=== PATIENT | male | born 1960 | race Caucasian/White ===

== ENCOUNTER 2018-09-19 20:32 | Emergency (ER) | payer OTHER ==
[2018-09-19 20:46] VITALS: BP 153/95; PULSE 71; TEMP 97.5; BMI 31.2
--- NOTE | 2018-09-19 20:49 | PDOC ---
History of Present Illness - General History Source: Patient Exam Limitations: No Limitations - History of Present Illness Initial Comments: A portion of this note was documented by scribe services under my direction. I have reviewed the details of the note, within reason, and agree with the documentation with the following case summary and management plan written by me. Patient treated in the ED. Nursing notes are reviewed and incorporated into the medical decision-making. Vital signs reviewed. 09/19/18 20:49 Procedure note Jagged avulsion and associated superficial laceration or cleaned and closed with Dermabond patient tolerated well Patient discharged with Dermabond instructions <Kelsy Finch I - Last Filed: 09/19/18 20:43> - History of Present Illness Initial Comments: 09/19/18 20:54 The patient is a 58 year old male, with no significant PMH, currently on aspirin who presents to the emergency department with a right index laceration. Patient states he was cutting meat with a sharp knife when he accidently injured his right index finger. Patients laceration is not actively bleeding here in the ER. Unknown when he had his last tetanus shot. The patient denies chest pain, shortness of breath, headache and dizziness. Denies fever, chills, nausea, vomit, diarrhea and constipation. Denies dysuria, frequency, urgency and hematuria. Allergies: iodine Past surgical history: None reported. Social history: No reported alcohol, drug or cigarette use. PCP: Dr. Smith Adult ROS General: No fevers or chills, no weakness, no weight loss HEENT: No change in vision. No sore throat,. No ear pain CardioVascular: No chest pain or shortness of breath Respiratory:No cough, or wheezing. Gastrointestinal: no nausea, vomiting, diarrhea or constipation, No rectal bleeding Genitourinary: No dysuria, hematuria, or frequency Musculoskeletal: No joint or muscle pain or swelling Neurologic: No headache, vertigo, dizziness or loss of consciousness Psychiatric: nor depression Skin: No rashes or easy bruising. (+) Right index finger laceration. Endocrine: no increased thirst or abnormal weight change Allergic: no skin or latex allergy All other systems reviewed and normal Basic PE GENERAL: The patient is awake, alert, and fully oriented, in no acute distress. HEAD: Normal with no signs of trauma. EYES: Pupils equal, round and reactive to light, extraocular movements intact, sclera anicteric, conjunctiva clear. EXTREMITIES: Normal range of motion, no edema. NEUROLOGICAL: Normal speech, normal gait. PSYCH: Normal mood, normal affect. SKIN: Warm, Dry, normal turgor, no rashes noted. (+) Medial aspect of the right index finger has a jagged avulsion with small associated laceration to the proximal phalanx area. (+) Minimal amount of venous ooze. Neurovascularly intact. <Frida Riggins - Last Filed: 09/19/18 20:55> - General Chief Complaint: Laceration Stated Complaint: RT 2ND FINGER LACERATION Time Seen by Provider: 09/19/18 20:35 Past History - Past Medical History Anemia: No Asthma: No Cancer: No Cardiac Disorders: No CVA: No COPD: No CHF: No Dementia: No Diabetes: No GI Disorders: No Disorders: No HTN: Yes Hypercholesterolemia: Yes Liver Disease: No Seizures: No Thyroid Disease: No - Surgical History Abdominal Surgery: Yes (UMBILICAL HERNIA REPAIR 1999) Appendectomy: No Cardiac Surgery: (angiogram 06/2011 family hx) Cholecystectomy: No Lung Surgery: No Neurologic Surgery: No Orthopedic Surgery: Yes (LEFT KNEE ARTHROSCOPY 10/2011) - Suicide/Smoking/Psychosocial Hx Smoking History: Never smoked Have you smoked in the past 12 months: No Information on smoking cessation initiated: No Hx Alcohol Use: (social) Drug/Substance Use Hx: Yes Substance Use Type: Alcohol Hx Substance Use Treatment: No <Kelsy Finch I - Last Filed: 09/19/18 20:43> <Frida Riggins - Last Filed: 09/19/18 20:55> - Past Medical History Allergies/Adverse Reactions: Allergies Allergy/AdvReac Type Severity Reaction Status Date / Time Iodinated Contrast- Oral and Allergy Mild Rash Verified 09/19/18 20:33 IV Dye dye for angiogram Allergy Rash Uncoded 09/19/18 20:33 Home Medications: Ambulatory Orders Metoprolol Succinate [Toprol XL -] 1 tab PO DAILY 10/09/11 Simvastatin [Zocor] 2 tab PO DAILY 10/09/11 Aspirin [Aspirin EC] 81 mg PO DAILY 09/19/18 *Physical Exam - Vital Signs Last Vital Signs Temp Pulse Resp BP Pulse Ox 97.5 F L 71 18 153/95 97 09/19/18 20:32 09/19/18 20:32 09/19/18 20:32 09/19/18 20:32 09/19/18 20:32 <Kelsy Finch I - Last Filed: 09/19/18 20:43> - Vital Signs Last Vital Signs Temp Pulse Resp BP Pulse Ox 97.5 F L 71 18 153/95 97 09/19/18 20:32 09/19/18 20:32 09/19/18 20:32 09/19/18 20:32 09/19/18 20:32 <Frida Riggins - Last Filed: 09/19/18 20:55> Moderate Sedation - Procedure Monitoring Vital Signs: Procedure Monitoring Vital Signs Temperature 97.5 F L 09/19/18 20:32 Pulse Rate 71 09/19/18 20:32 Respiratory Rate 18 09/19/18 20:32 Blood Pressure 153/95 09/19/18 20:32 O2 Sat by Pulse Oximetry (%) 97 09/19/18 20:32 <Kelsy Finch I - Last Filed: 09/19/18 20:43> - Procedure Monitoring Vital Signs: Procedure Monitoring Vital Signs Temperature 97.5 F L 09/19/18 20:32 Pulse Rate 71 09/19/18 20:32 Respiratory Rate 18 09/19/18 20:32 Blood Pressure 153/95 09/19/18 20:32 O2 Sat by Pulse Oximetry (%) 97 09/19/18 20:32 <Frida Riggins - Last Filed: 09/19/18 20:55> *DC/Admit/Observation/Transfer - Discharge Dispostion Decision to Admit order: No <Kelsy Finch I - Last Filed: 09/19/18 20:43> - Attestations Scribe Attestion: 09/19/18 20:54 Documentation prepared by Frida Riggins, acting as medical billing associate for Kelsy Finch MD. <Frida Riggins - Last Filed: 09/19/18 20:55> Diagnosis at time of Disposition: Finger laceration Qualifiers: Encounter type: initial encounter Finger: index finger Damage to nail status: without damage Foreign body presence: without foreign body Laterality: right Qualified Code(s): S61.210A - Laceration without foreign body of right index finger without damage to nail, initial encounter - Discharge Dispostion Disposition: HOME Condition at time of disposition: Stable - Referrals Referrals: Arielle Borges MD [Primary Care Provider] - - Patient Instructions Printed Discharge Instructions: DI for Laceration Repair With Dermabond Additional Instructions: Read over and follow the Dermabond instructions. The johnson points are to make sure you keep it dry for 72 hours and do not apply any petroleum based product of the glue as it will cause it, for early and this includes antibiotic ointments motions are creams. Return to the emergency department immediately with ANY new, persistent or worsening symptoms. Continue any medications as previously prescribed by your physician. You should follow up with your primary doctor as soon as possible regarding today's emergency department visit. . Please make sure your doctor reviews the results of your emergency evaluation. Thank you for coming to the Emergency Department today for your care. It was a pleasure to see you today. Please note that your evaluation is INCOMPLETE until you follow-up with your doctor. - Post Discharge Activity
[2018-09-19] MEDS ORDERED: DIPHTH,PERTUSS(ACELL),TET 0.5 ML DISP.SYRIN IM ONE ×2 (20:52)
== END 2018-09-19 21:00 | disposition home or self-care (01) ==
LOC: FER 20:32
PROC: 3E0234Z Introduction of Serum, Toxoid and Vaccine into Muscle, Percutaneous Approach (ICD-10-PCS; principal; 2018-09-19)
PROC: 0HQFXZZ Repair Right Hand Skin, External Approach (ICD-10-PCS; 2018-09-19)
DX: S61.210A Laceration without foreign body of right index finger without damage to nail, initial encounter (principal); W26.0XXA Contact with knife, initial encounter; Y93.G1 Activity, food preparation and clean up; Y92.89 Other specified places as the place of occurrence of the external cause; I10 Essential (primary) hypertension; E78.00 Pure hypercholesterolemia, unspecified
CPT/HCPCS: 12001; 90471; 90715; 99283-25

== ENCOUNTER 2022-04-10 07:05 | Day surgery (SDC) | payer OTHER ==
[2022-04-08 09:14] VITALS: BMI 31.8
[2022-04-10] MEDS ORDERED: LIDOCAINE HCL/PF 2% SDV 5ML VIAL ONE (07:19)
[2022-04-10] MEDS ORDERED: PROPOFOL 120 ML ONE (07:20)
[2022-04-10 08:46] VITALS: RESP 16; TEMP 97.9
[2022-04-10 09:03] VITALS: BP 118/77; PULSE 62
== END 2022-04-10 09:07 | disposition home or self-care (01) ==
LOC: FASU-ENDO 07:05
PROVIDERS: ATTEND Internal Medicine Gastroenterology
PROC: 0DBN8ZX Excision of Sigmoid Colon, Via Natural or Artificial Opening Endoscopic, Diagnostic (ICD-10-PCS; principal; 2022-04-10 08:14)
DX: Z12.11 Encounter for screening for malignant neoplasm of colon (principal); D12.3 Benign neoplasm of transverse colon
CPT/HCPCS: 88305-TC